=== PATIENT | male | born 1970 | race Caucasian/White ===

== ENCOUNTER 2022-10-25 09:19 | Outpatient (CLI) | payer OTHER ==
[2022-10-25] MEDS ORDERED: iohexol 300mg/ml 100ml inj. ONE (09:27)
== END 2022-10-25 23:59 | disposition home or self-care (01) ==
LOC: RAD 09:19
PROVIDERS: ATTEND Internal Medicine Infectious Disease
DX: J90 Pleural effusion, not elsewhere classified (principal); J98.11 Atelectasis; K80.20 Calculus of gallbladder without cholecystitis without obstruction; Z90.49 Acquired absence of other specified parts of digestive tract
CPT/HCPCS: 74176; J3490; Q9967